=== PATIENT | male | born 1950 | race Caucasian/White ===

== ENCOUNTER 2016-12-02 16:24 | Inpatient (IN) | payer MEDICARE ==
[~2016-12-02] VITALS: Ht 182.9 cm; Wt 90.2 kg
[~2016-12-02 16:24] MED LIST: AMLODIPINE5 MG PO; ASA LO-DOSE81 MG OR; BENADRYL 50MG C50 MG PO; BENZTROPINE0.5 MG PO; CELEBREX100 M1 PO; CELEBREX200 MG PO; COGENTIN1 MG OR; DONEPEZIL5 MG PO; ENALAPRIL10 MG PO; ENALAPRIL20 MG PO; HALDOL1 MG PO; HALDOL5 MG PO; HALOPERIDOL5 MG PO; LORTAB 10-325 M1 TAB PO; MEDDOSEPAK PO; MIRACLEMM PO; NAPROSYN500 MG PO; PEPCID20 MG PO; PREDNISONE20 MG PO; PROAIR HFA IN; RISPERDAL2 MG PO; SYMBICORT1 AE1 IN; ULTRAM50 MG PO; XANAX0.25 MG PO
[2016-12-02 17:24] LABS: HEMATOCRIT 36.4 % (39.0-50.0); HEMOGLOBIN 12.8 g/dl (14.0-18.0); IMMATURE GRANULOCYTES 0.2 % (0.0-1.0); MEAN CELL VOLUME 80.2 fL CALC (80.0-100.0); MEAN CORPUSCULAR HGB 28.2 pG CALC (26.0-32.0); MEAN CORPUSCULAR HGB CONC 35.2 g/L CALC (32.0-36.0); NEUT# 5.66 thou/uL (1.82-7.42); RED BLOOD COUNT 4.54 mill/uL (4.70-6.10); RED CELL DISTRI WIDTH 12.9 % (11.5-15.5)
[2016-12-02 17:50] LABS: ALBUMIN 3.8 g/dL (3.2-5.0); ALKALINE PHOSPHATASE 59 u/l (38-126); ANION GAP 13 (6-22 (CALC)); BILIRUBIN, TOTAL 0.4 mg/dL (0.0-1.4); BUN 9 mg/dL (8-23); BUN/CREATININE RATIO 16 (12-20 (CALC)); CALCIUM 8.7 mg/dL (8.4-10.2); CARBON DIOXIDE 26 mmol/l (22-30); CHLORIDE 81 mmol/l (95-108); CREATININE 0.6 mg/dL (0.7-1.3); GFR > 60 ML/MIN (>=60 (CALC)); GFR FOR AFR.AMER. > 60 ML/MIN (>=60 (CALC)); GLUCOSE 112 mg/dL (82-115); MAGNESIUM 1.6 mg/dL (1.6-2.3); POTASSIUM 3.8 mmol/l (3.5-5.1); SGOT/AST 18 u/l (19-48); SGPT/ALT 31 u/l (11-66); TOTAL PROTEIN 7.4 g/dL (6.3-8.2)
[2016-12-02 17:52] LABS: SODIUM 116 mmol/l (137-146)
[2016-12-02 18:09] LABS: MYOGLOBIN 38 ng/mL (0 - 121)
[2016-12-02 20:38] VITALS: BP 151/72
[2016-12-02 23:30] VITALS: BP 104/65
[2016-12-03 04:15] VITALS: BP 128/77
[2016-12-03 05:33] LABS: URINE BILIRUBIN - DIPSTICK NEGATIVE (NEGATIVE); URINE BLOOD DIPSTICK NEGATIVE (NEGATIVE); URINE CLARITY SLIGHT CLOUDY; URINE COLOR YELLOW; URINE GLUCOSE - DIPSTICK 100 mg/dL (NEGATIVE); URINE KETONE NEGATIVE (NEGATIVE); URINE LEUK ESTERASE NEGATIVE (NEGATIVE); URINE NITRITE - DIPSTICK NEGATIVE (Negative); URINE PH 6.5 (4.5-8.0); URINE PROTEIN - DIPSTICK 100 mg/dL (NEG-TRACE); URINE SPECIFIC GRAVITY 1.015; URINE UROBILINOGEN - DIPSTICK 0.2 E.U./dL (0.2)
[2016-12-03 05:40] LABS: URINE AMORPH SEDIMENT MANY hpf (NONE-FER); URINE BACTERIA FEW hpf; URINE RBC 0-2 RBC/hpf (0-5); URINE SQUAMOUS EPITHELIAL CELL FEW EPI/hpf (0-FEW)
[2016-12-03 05:47] LABS: BUN 8 mg/dL (8-23); BUN/CREATININE RATIO 18 (12-20 (CALC)); CALCIUM 8.9 mg/dL (8.4-10.2); CARBON DIOXIDE 22 mmol/l (22-30); CHLORIDE 84 mmol/l (95-108); CREATININE 0.4 mg/dL (0.7-1.3); GFR > 60 ML/MIN (>=60 (CALC)); GFR FOR AFR.AMER. > 60 ML/MIN (>=60 (CALC)); GLUCOSE 149 mg/dL (82-115); MAGNESIUM 1.5 mg/dL (1.6-2.3)
[2016-12-03 05:49] LABS: ANION GAP 14 (6-22 (CALC))
[2016-12-03 05:53] LABS: SODIUM 116 mmol/l (137-146)
[2016-12-03 13:30] VITALS: BP 109/60
[2016-12-03 16:05] VITALS: BP 109/59
[2016-12-03 19:18] VITALS: BP 107/58
[2016-12-04 00:05] VITALS: BP 145/83
[2016-12-04 03:40] VITALS: BP 131/74
[2016-12-04 05:49] LABS: ANION GAP 12 (6-22 (CALC)); BUN 8 mg/dL (8-23); BUN/CREATININE RATIO 17 (12-20 (CALC)); CALCIUM 8.5 mg/dL (8.4-10.2); CARBON DIOXIDE 24 mmol/l (22-30); CHLORIDE 88 mmol/l (95-108); CREATININE 0.5 mg/dL (0.7-1.3); GFR > 60 ML/MIN (>=60 (CALC)); GFR FOR AFR.AMER. > 60 ML/MIN (>=60 (CALC)); GLUCOSE 133 mg/dL (82-115); MAGNESIUM 1.8 mg/dL (1.6-2.3); POTASSIUM 4.1 mmol/l (3.5-5.1); SODIUM 120 mmol/l (137-146)
[2016-12-04 08:10] VITALS: BP 140/85
[2016-12-04] MEDS ORDERED: PREDNISONE10 MG PO (10:15)
[2016-12-04] MEDS ORDERED: NICODERM C21 MG/242 TD (10:16)
[2016-12-04] MEDS ORDERED: ROBITUSSIN AC10 ML PO (10:17)
[2016-12-04 11:37] VITALS: BP 116/60
== END 2016-12-04 12:19 | disposition home or self-care (01) | DRG 189 ==
LOC: ENPENDDIS → ED 16:24 → ED-I 19:35 → ED 19:39 → MS2 19:40
PROVIDERS: Emergency Medicine; ADMIT Internal Medicine; ATTEND Internal Medicine
DX: J96.21 Acute and chronic respiratory failure with hypoxia (principal); F03.90 Unspecified dementia, unspecified severity, without behavioral disturbance, psychotic disturbance, mood disturbance, and anxiety; J44.0 Chronic obstructive pulmonary disease with (acute) lower respiratory infection; J44.1 Chronic obstructive pulmonary disease with (acute) exacerbation; E87.1 Hypo-osmolality and hyponatremia; J20.9 Acute bronchitis, unspecified; F17.210 Nicotine dependence, cigarettes, uncomplicated; F20.9 Schizophrenia, unspecified; I10 Essential (primary) hypertension; F45.8 Other somatoform disorders

== ENCOUNTER 2016-12-20 10:16 | Inpatient (IN) | payer MEDICARE ==
[2016-12-20] VITALS (7 sets, daily range): BP systolic 107–128; BP diastolic 61–78
[~2016-12-20] VITALS: Ht 182.9 cm; Wt 87.5 kg
[~2016-12-20 10:16] MED LIST changes: +NICODERM C21 MG/242 TD; +PREDNISONE10 MG PO; +ROBITUSSIN AC10 ML PO
--- NOTE | 2016-12-20 10:20 | NUR ---
PT ARRIVES VIA EMS TO ROOM 14. NO APPARENT DISTRESS NOTED. SPO2 96% ON ROOM AIR. PT RECEIVED 1 DUONEB AND 125 MG SOLUMEDROL IVP EN ROUTE TO ED.
--- NOTE | 2016-12-20 10:44 | NUR ---
PT NOW RECEIVES RESP TX, MOTHER NOW AT BEDSIDE.
[2016-12-20 10:45] LABS: HEMATOCRIT 31.8 % (39.0-50.0); HEMOGLOBIN 11.4 g/dl (14.0-18.0); IMMATURE GRANULOCYTES 0.3 % (0.0-1.0); MEAN CELL VOLUME 78.3 fL CALC (80.0-100.0); MEAN CORPUSCULAR HGB 28.1 pG CALC (26.0-32.0); MEAN CORPUSCULAR HGB CONC 35.8 g/L CALC (32.0-36.0); NEUT# 4.14 thou/uL (1.82-7.42); RED BLOOD COUNT 4.06 mill/uL (4.70-6.10); RED CELL DISTRI WIDTH 12.8 % (11.5-15.5)
[2016-12-20 11:10] LABS: ALBUMIN 3.6 g/dL (3.2-5.0); ALKALINE PHOSPHATASE 55 u/l (38-126); BILIRUBIN, TOTAL 0.6 mg/dL (0.0-1.4); BUN 7 mg/dL (8-23); BUN/CREATININE RATIO 12 (12-20 (CALC)); CALCIUM 8.4 mg/dL (8.4-10.2); CARBON DIOXIDE 22 mmol/l (22-30); CHLORIDE 80 mmol/l (95-108); CREATININE 0.6 mg/dL (0.7-1.3); GFR > 60 ML/MIN (>=60 (CALC)); GFR FOR AFR.AMER. > 60 ML/MIN (>=60 (CALC)); GLUCOSE 106 mg/dL (82-115); POTASSIUM 3.5 mmol/l (3.5-5.1); SGOT/AST 20 u/l (19-48); SGPT/ALT 28 u/l (11-66); TOTAL PROTEIN 6.9 g/dL (6.3-8.2)
[2016-12-20 11:17] LABS: ANION GAP 14 (6-22 (CALC))
[2016-12-20 11:18] LABS: MYOGLOBIN 30 ng/mL (0 - 121); SODIUM 112 mmol/l (137-146)
--- NOTE | 2016-12-20 11:45 | NUR ---
PT RESTING ON STRETCHER. DENIES COMPLAINTS. ADVISED OF WAIT TIME DUE TO BUSY ED. PT GIVEN WARM BLANKET FOR COMFORT. CALL LIGHT IN REACH.
--- NOTE | 2016-12-20 13:12 | NUR ---
PT AND MOTHER AWARE OF PENDING ADMISSION, TO ICU WHEN POSSIBLE.
[2016-12-20 14:26] LABS: POTASSIUM 3.4 mmol/l (3.5-5.1)
--- NOTE | 2016-12-20 14:45 | NUR ---
PT TAKEN TO ICU-1 AFTER REPORT PROVIDED TO KINGSLEY LUI.
--- NOTE | 2016-12-20 14:50 | NUR ---
PT ADMITTED TO ICU BED 1 VIA STRETCHER FROM ER. PT ALERT AND ORIENTED, STOOD OFF STRETCHER AND AMBULATED FEW STEPS TO BED WITH CANE AND MIN ASSIST, PT HAS SLIGHTLY UNSTEADY GAIT NOTED, PT INTO BED AND REPOSTIONED FOR COMFORT, PT ALERT AND ORIENTED, SOME TREMORS NOTED TO BILATERAL UE WITH PURPOSEFUL MOVEMENT AND AT REST, PT/FAMILY STATES THEY ARE NOT NEW, SKIN INTACT WIHT FEW SMALL SCATTERED ECCHYMOTIC AREAS NOTED TO BUE, EMS 20 G INTACT IN LEFT WRIST WITH GOOD ASPIRATE NOTED, ABD SOFT, BS ACTIVE, PT DENIES N/V, EDUCATED REGARDING FLUID RESTRICTION RELATED TO LOW SODIUM LEVEL, ADMISSION ASSESSMENT COMPLETED SEE INTERVENTIONS, TELE READING SR RATE 80-90'S,BP STABLE, AFEBRILE, SAFETY MEASURES INTRODUCED, CALL FIGUEROA WITHIN REACH, MOTHER AT BEDSIDE (SHE IS PRIMARY WAREHOUSE SHIFT SUPERVISOR) ENCOURGAED TO CALL FOR ANY NEEDED ASSISTANCE
--- NOTE | 2016-12-20 16:10 | NUR ---
PT RESTING IN BED, ASKING INTERMITTENLY FOR WATER OR "SOMEHTING TO DRINK" REINFORCED FLUID RESTIRCTION AND REASON FOR IT, PT VERBALIZES UNDERSTANDING, PT'S MOTHER ASKING ABOUT DIET AND WHEN HE WILL GET FOOD, EDUCATED REGARDING MEAL TIMES, NO CHANGE IN TELE NOTED, BP REMAINS STABLE, ALSO ASKING ABOUT MEIDCATIONS, EDUCATED REGARDING SCHEDULED MEDICATION TIMES, CALL FIGUEROA WITHIN REACH
--- NOTE | 2016-12-20 17:15 | NUR ---
3% SALINE STARTED ORDERED, PT AGAIN REMINDED OF FLUID RESTRICTION, VERBALIZES UNDERSTANDING BUT REQUIRES REINFORCEMENT RELATED TO FORGETFULNESS, MOM REMAINS AT BEDSIDE.
--- NOTE | 2016-12-20 18:30 | NUR ---
PT MOD ASSIST STOOD AT BEDSIDE TO USE URINAL, VOIDED 175ML CLEAR STEPHEN URINE, BACK TO BED AND REPOSITIONED FOR COMFORT.
--- NOTE | 2016-12-20 18:45 | NUR ---
RECEIVED REPORT FROM KINGSLEY SAL RN; FOUND PT ALERT AND ORIENTED X3, RESP ARE MILDLY LABORED, ON 3LPM VIA NC, DENIES PAIN AT THIS TIME, ASSITED WITH URINAL, PT UNABLE TO VOID AT THIS TIME, KEEP ASKING FOR WATER, PROVIDED A SIP TO MOISTEN MOUTH, LUNGS ARE CLEAR BILATERALLY, SR ON THE MONITOR, HR 86, PT IS AFEBRILE, RESP RATE IS 22 AT THIS TIME, BP 123/61, SPO2 96% VIA NC ON 3LPM, PT HAS 3% NS AT 50 ML/HR INFUSING TO EMS 20G LEFT WRIST, STRONG PEDAL PULSES, SKIN IS WARM AND DRY, EXPLAINED PLAN OF CARE AND MED SCHEDULE, PT APPEARS DISINTERESTED, WILL REINFORCE NEEDED. SAFETY PRECAUTIONS ARE IN PLACE, WILL CONTINUE TO MONITOR. CALL FIGUEROA IS AT REACH.
--- NOTE | 2016-12-20 18:50 | NUR ---
pt assisted with urinal usage, unable to urinate at this time.
[2016-12-20 19:55] LABS: BUN 9 mg/dL (8-23); BUN/CREATININE RATIO 16 (12-20 (CALC)); CALCIUM 8.9 mg/dL (8.4-10.2); CARBON DIOXIDE 19 mmol/l (22-30); CHLORIDE 80 mmol/l (95-108); CREATININE 0.5 mg/dL (0.7-1.3); GFR > 60 ML/MIN (>=60 (CALC)); GFR FOR AFR.AMER. > 60 ML/MIN (>=60 (CALC)); GLUCOSE 204 mg/dL (82-115); POTASSIUM 3.6 mmol/l (3.5-5.1)
[2016-12-20 19:56] LABS: ANION GAP 19 (6-22 (CALC)); SODIUM 114 mmol/l (137-146)
--- NOTE | 2016-12-20 20:00 | NUR ---
ATTEMPTED TO ASSIST PT TO STAND ON SIDE OF BED TO USE THE URINAL, TREMORS NOTED ON BILATERAL UPPER AND LOWER EXTREMETIES, VERY UNSTEADY GAIT NOTED, ASSISTED PT TO SIT DOWN ON SIDE OF BED, PT DID NOT VOIDED ANY URINE, KEEP ASKING FOR WATER, "STATES MY MOUTH IS DRY," EDUCATED PT ABOUT RATIONALE OF BEING ON FLUID RESTRICTION, PT IS DENIAL, PROVIDED A SIP OF WATER ONLY TO MOISTEN MOUTH, ASSISTED PT TO LIE BACK IN BED, TREMOLOUS, RESP ARE LABORED, ANXIOUS, INSTRUCTED ON BREATHING TECHNIQUES, PT DOES NOT FOLLOW COMMANDS, CALLED NICOLE CANCINO, FOR A BREATHING TX AT THIS TIME. WILL CONTINUE TO MONITOR.
--- NOTE | 2016-12-20 20:56 | NUR ---
MEDICATED PT WITH LORTAB FOR GENERALIZED ACHING PAIN, RATES IT AT 8/10, ASSISTED WITH URINAL, PT UNABLE TO HOLD URINAL BECAUSE OF TREMORS IN UPPER EXTREMITIES, VOIDED 50 ML OF CLEAR YELLOW URINE. WILL CONTINUE TO MONITOR
[2016-12-21] VITALS (10 sets, daily range): BP systolic 97–113; BP diastolic 53–69
--- NOTE | 2016-12-21 00:30 | NUR ---
JUVENILE CORRECTIONS OFFICER IN TO DRAW ELECTROLYTES.
--- NOTE | 2016-12-21 00:40 | NUR ---
PT RESTLESS, ANXIOUS, KEEPS REMOVING NC OF NOSE, RESP ARE UNLABORED, MEDICATED WITH ATIVAN IV PER DR. HARP WILL CONTINUE TO MONITOR.
[2016-12-21 00:52] LABS: URINE BILIRUBIN - DIPSTICK NEGATIVE (NEGATIVE); URINE BLOOD DIPSTICK NEGATIVE (NEGATIVE); URINE CLARITY CLEAR; URINE COLOR YELLOW; URINE GLUCOSE - DIPSTICK 100 mg/dL (NEGATIVE); URINE KETONE NEGATIVE (NEGATIVE); URINE LEUK ESTERASE NEGATIVE (NEGATIVE); URINE NITRITE - DIPSTICK NEGATIVE (Negative); URINE PROTEIN - DIPSTICK 30 mg/dL (NEG-TRACE); URINE UROBILINOGEN - DIPSTICK 0.2 E.U./dL (0.2)
[2016-12-21 01:05] LABS: URINE SQUAMOUS EPITHELIAL CELL RARE EPI/hpf (0-FEW); URINE WBC 0-2 WBC/hpf (0-5)
[2016-12-21 01:17] LABS: POTASSIUM 3.4 mmol/l (3.5-5.1)
--- NOTE | 2016-12-21 01:35 | NUR ---
RESTING IN BED CALM WITH EYES CLOSED; RESP ARE EVEN AND UNLABORED, MILD TREMORS NOTED ON BILATERAL UPPER EXT, SR ON MONITOR, HR 69, SPO2 98% AT THIS TIME.
--- NOTE | 2016-12-21 02:00 | NUR ---
GLYCERIN OPERATOR IN TO DRAW LABS.
[2016-12-21 02:22] LABS: POTASSIUM 3.4 mmol/l (3.5-5.1)
--- NOTE | 2016-12-21 04:01 | NUR ---
PT APPEARS TO BE SLEEPING WITH EYES CLOSED, RESP ARE UNLABORED, VSS, SPO2 93% ON 2L O2, 3% NS INFUSING PER PROTOCOL, IV SITE IS HEALTHY FREE OF EDEMA AND REDNESS, NO SIGNS OF EXTRAVASATION OR INFILTRATION, WILL CONTINUE TO MONITOR.
--- NOTE | 2016-12-21 04:10 | NUR ---
LAB TECHN DRAWING PT LABS.
[2016-12-21 04:35] LABS: POTASSIUM 3.4 mmol/l (3.5-5.1)
--- NOTE | 2016-12-21 04:47 | NUR ---
ASSISTED PT WITH URINAL USAGE, VOIDED 300 ML OF CLEAR YELLOW URINE, TREMULOUS, WITH MILD ANXIETY; 3% NS INFUSION COMPLETED AT 0430, 119 SODIUM LAB RESULTS.
--- NOTE | 2016-12-21 06:00 | NUR ---
VERTICAL LATHE OPERATOR DRAWING LABS.
[2016-12-21 06:14] LABS: HEMATOCRIT 33.9 % (39.0-50.0); IMMATURE GRANULOCYTES 0.5 % (0.0-1.0); MEAN CORPUSCULAR HGB 28.3 pG CALC (26.0-32.0); MEAN CORPUSCULAR HGB CONC 35.4 g/L CALC (32.0-36.0); NEUT# 16.31 thou/uL (1.82-7.42); RED BLOOD COUNT 4.24 mill/uL (4.70-6.10)
--- NOTE | 2016-12-21 06:17 | NUR ---
TOTAL OUPUT OF 500ML FOR LOAN SERVICING OFFICER, NOTIFIED DR OF LAST SODIUM RESULTS OF 119, WAITING FOR 0600 RESULTS.
[2016-12-21 06:31] LABS: ANION GAP 15 (6-22 (CALC)); BUN 6 mg/dL (8-23); BUN/CREATININE RATIO 13 (12-20 (CALC)); CARBON DIOXIDE 24 mmol/l (22-30); CHLORIDE 86 mmol/l (95-108); CREATININE 0.5 mg/dL (0.7-1.3); GFR > 60 ML/MIN (>=60 (CALC)); GFR FOR AFR.AMER. > 60 ML/MIN (>=60 (CALC)); GLUCOSE 124 mg/dL (82-115); POTASSIUM 3.9 mmol/l (3.5-5.1); SODIUM 121 mmol/l (137-146)
--- NOTE | 2016-12-21 07:25 | NUR ---
PT OOB TO BSC, AM ASSESSMENT COMPLETED, SEE INTERVENTIONS, SKIN WARM AND DRY ALERT AND ORIENTED WITH SOME TREMORS NOTED AND POOR BALANCE, CANE AT BEDSIDE, SKIN INTACT WIHT FEW SMALL SCATTERED ABRASIONS TO BUE, DRY AND SCABBED, PT IMPULSIVE WITH MOVEMENT AND ACTIVITY, REQUIRES FREQUENT SAFETY REMINDERS, EMS SITE INTACT SALINE LOCKED AT THIS TIME, NO EDEMA NOTED, TELE READING SR RATE IN THE 70-80'S BP STABLE, OFFERS NO COMPLAINTS, CALL FIGUEROA WITHIN REACH
--- NOTE | 2016-12-21 08:00 | NUR ---
PT ASSIST BATHED WHILE OOB, LINENS CHANGED ON BED, PT CONTIONENT OF MODERATE AMOUNT OF URINE AND LARGE FORMED BM, PT PROVIDED OWN ALEXIS CARE, MOD/MAX ASSIST TO CHAIR AT BEDSIDE FOR AM MEAL, SET UP ASSIST PROIVDED, CALL FIGUEROA WITHIN REACH
--- NOTE | 2016-12-21 08:11 | NUR ---
IN TO SEE PT, PLAN OF CARE DISCUSSED.
--- NOTE | 2016-12-21 09:04 | NUR ---
MOTHER AT BEDSIDE, PT REMAINS SITTING UP IN CHAIR, 3% SALINE INFUSING PER PROTOCOL
--- NOTE | 2016-12-21 09:32 | NUR ---
IN TO SEE PATIENT, PLAN OF CARE DISCUSSED INCLUDING PLANNED DISCHARGE THIS AFTERNOON. MOTHER REMAINS AT BEDSIDE AND IS ALSO AWARE OF PLAN, CALL FIGUEROA WITHIN REACH, WILL DRAW LAB WORK AT 1030 ORDERED
--- NOTE | 2016-12-21 11:03 | NUR ---
PT REMAINS SITTING UP IN CHAIR AT BEDSIDE, MOTHER REAMINS IN ROOM, LAB WORK DRAWN PER PROTOCOL, WITH HYPERTONIC SALINE CONTINUING PER ORDERS, CALL FIGUEROA WITHIN REACH, OFFERS NO NEW COMPLAINTS
[2016-12-21 11:17] LABS: ANION GAP 14 (6-22 (CALC)); BUN 7 mg/dL (8-23); BUN/CREATININE RATIO 14 (12-20 (CALC)); CALCIUM 9.2 mg/dL (8.4-10.2); CARBON DIOXIDE 24 mmol/l (22-30); CHLORIDE 87 mmol/l (95-108); CREATININE 0.5 mg/dL (0.7-1.3); GFR > 60 ML/MIN (>=60 (CALC)); GFR FOR AFR.AMER. > 60 ML/MIN (>=60 (CALC)); GLUCOSE 100 mg/dL (82-115); POTASSIUM 3.6 mmol/l (3.5-5.1); SODIUM 122 mmol/l (137-146)
--- NOTE | 2016-12-21 12:32 | NUR ---
REPEAT LAB WORK BACK, SODIUM LEVEL MINIMALLY IMPROVED, WILL REPEAT AGAINA T 1230PER PROTOCOL, TOLERATED LUNCH AND IVF ORDERED W/O INCINDENT.
--- NOTE | 2016-12-21 12:35 | NUR ---
PT ASSISTED BACK TO BED, OFFERS NO COMPLAINTS, TOLERATED LUNCH WELL WITH GOOD INTAKE, STRICT I&O'S OBSERVED, WITH FLUID RESTRICTION FOLLOWED, CALL FIGUEROA WITHIN REACH, MOTHER REMAINS AT BEDSIDE,
[2016-12-21] MEDS ORDERED: PREDNISONE10 MG PO (12:52)
[2016-12-21] MEDS ORDERED: DOXYCYCL HYC100 MG PO (12:52)
[2016-12-21] MEDS ORDERED: IPRATROPIU0.5 MG/3 M IN (12:52)
--- NOTE | 2016-12-21 13:17 | NUR ---
IN AGAIN, D/C ORDERS GIVEN, CASE MGMT AWARE OF NEED FOR HH AND HOME O2.
[2016-12-21 13:19] LABS: ANION GAP 14 (6-22 (CALC)); BUN 9 mg/dL (8-23); BUN/CREATININE RATIO 16 (12-20 (CALC)); CALCIUM 8.9 mg/dL (8.4-10.2); CARBON DIOXIDE 24 mmol/l (22-30); CHLORIDE 89 mmol/l (95-108); CREATININE 0.5 mg/dL (0.7-1.3); GFR > 60 ML/MIN (>=60 (CALC)); GFR FOR AFR.AMER. > 60 ML/MIN (>=60 (CALC)); GLUCOSE 127 mg/dL (82-115); POTASSIUM 3.7 mmol/l (3.5-5.1); SODIUM 124 mmol/l (137-146)
--- NOTE | 2016-12-21 13:47 | NUR ---
O2 SATURATION ON ROOM AIR AT REST 93%, WILL AMBULATE AND MONITOR
--- NOTE | 2016-12-21 14:10 | NUR ---
PT AMBULATED WTIH O2 SATS DROPPING TO 81-83%, AMBULATING WITH O2 SAST 84-86%, THEN UPON RESTING WITH O2 AT 2L WITHIN 60-80 SEC SATS IMPROVED TO 92-93%. AFTER 5 MIN OF REST SATS ON ROOM AIR 990-92%, PLANS FOR D/C TODAY WITH HOME O2 SET UP FOR PRN, AND HS,
--- NOTE | 2016-12-21 14:31 | NUR ---
MOTHER AND PATIENT EDUCATED REGARDING D/C HOME, INCLUDING HH, SELECTION FOLLOW UP WITH HH, FOLLOW UP WITH MD'S, HOME O2 USE PRN , NEB TREATMENTS AND LAB WORK, BOTH VERBALIZE UNDERSTANDING. AWAITING CLEARANCE FROM CASE MGMT, TO D/C.
--- NOTE | 2016-12-21 15:43 | NUR ---
[place] O2 DELIVERED TO BEDSIDE WITH FOLLOW UP SCHEDULED FOR HOME WELL.
--- NOTE | 2016-12-21 15:43 | NUR ---
Discharge instructions given. Patient verbalizes understanding of same. Discharged in stable condition via Wheelchair to Home with family. All belongings sent with pt.HOME PORTABLE O2 TANK AND SCRIPTS SENT WITH PATIENT WELL.
== END 2016-12-21 15:45 | DRG 641 ==
LOC: ENPENDDIS → ED 10:16 → ED-I 12:42 → ED 13:04 → ICU 13:05
PROVIDERS: Emergency Medicine; Internal Medicine; ADMIT Internal Medicine; ATTEND Internal Medicine
DX: E87.1 Hypo-osmolality and hyponatremia (principal); J44.1 Chronic obstructive pulmonary disease with (acute) exacerbation; I10 Essential (primary) hypertension; F20.9 Schizophrenia, unspecified; F50.89 Other specified eating disorder; D63.8 Anemia in other chronic diseases classified elsewhere; Z86.73 Personal history of transient ischemic attack (TIA), and cerebral infarction without residual deficits; Z87.891 Personal history of nicotine dependence
CPT/HCPCS: J2060

== ENCOUNTER 2017-03-03 11:36 | Inpatient (IN) | payer MEDICARE ==
[~2017-03-03] VITALS: Ht 182.9 cm; Wt 87.1 kg
[2017-03-03] VITALS (12 sets, daily range): BP systolic 129–157; BP diastolic 77–103
[~2017-03-03 11:36] MED LIST changes: +BEVESPI AEROSPH1 AER IN; +DOXYCYCL HYC100 MG PO; +IPRATROPIU0.5 MG/3 M IN
--- NOTE | 2017-03-03 11:45 | NUR ---
PATIENT FELL PRIOR TO ARRIVAL AND BECAME CONFUSED AND COMBATIVE. MOTHER GAVE 5MG OF VALIUM AND EMS GAVE AN ADDITIONAL 5MG OF VALIUM. PATIENT NOT ORIENTED TO PLACE OR TIME. PATIENT APPEARS ANXIOPUS AND COMBATIVE. RESTRAINTS APPLIED AND PHYSICIAN AT BEDSIDE FOR EVALUATION
[2017-03-03] MEDS ORDERED: BENZTROPINE0.5 MG PO (12:22)
[2017-03-03 12:24] LABS: URINE BILIRUBIN - DIPSTICK NEGATIVE (NEGATIVE); URINE BLOOD DIPSTICK NEGATIVE (NEGATIVE); URINE CLARITY CLEAR; URINE COLOR YELLOW; URINE GLUCOSE - DIPSTICK NEGATIVE (NEGATIVE); URINE KETONE NEGATIVE (NEGATIVE); URINE LEUK ESTERASE NEGATIVE (NEGATIVE); URINE NITRITE - DIPSTICK NEGATIVE (Negative); URINE PROTEIN - DIPSTICK NEGATIVE (NEG-TRACE); URINE UROBILINOGEN - DIPSTICK 0.2 E.U./dL (0.2)
[2017-03-03] MEDS ORDERED: TEMAZEPAM15 MG PO (12:25)
[2017-03-03] MEDS ORDERED: ALBUTEROL SUL0.083 % IN (12:26)
[2017-03-03] MEDS ORDERED: VALIUM5 MG PO (12:26)
--- NOTE | 2017-03-03 12:28 | NUR ---
PT LESS COMBATIVE AFTER IV MED GIVEN. MOM @ BEDSIDE. RESTRAINTS ON BOTH WRISTS. PT ABLE TO MOVE FREELY. CATH MILLER IN PLACE. PT STATES HES HUNGRY. BLOOD & URINE SENT TO LAB. PT REPEATEDLY KICKING OFF HIS BLANKETS. MOM STATES MENTATION IS DIFFERENT THAN NORMAL.
[2017-03-03 12:33] LABS: COCAINE NEGATIVE (NEGATIVE); METHADONE NEGATIVE (NEGATIVE); TETRAHYDROCANNABIONOL NEGATIVE (NEGATIVE)
[2017-03-03 12:34] LABS: BARBITURATES NEGATIVE (NEGATIVE); OXCYCODONE NEGATIVE (NEGATIVE); TRICYLIC ANTIDEPRESSANTS NEGATIVE (NEGATIVE)
[2017-03-03 12:36] LABS: ALKALINE PHOSPHATASE 49 u/l (38-126); ANION GAP 12 (6-22 (CALC)); BILIRUBIN, TOTAL 0.8 mg/dL (0.0-1.4); BUN 13 mg/dL (8-23); BUN/CREATININE RATIO 24 (12-20 (CALC)); CARBON DIOXIDE 23 mmol/l (22-30); CHLORIDE 83 mmol/l (95-108); CREATININE 0.5 mg/dL (0.7-1.3); GFR > 60 ML/MIN (>=60 (CALC)); GFR FOR AFR.AMER. > 60 ML/MIN (>=60 (CALC)); GLUCOSE 87 mg/dL (82-115); POTASSIUM 3.8 mmol/l (3.5-5.1); SGOT/AST 20 u/l (19-48); SGPT/ALT 28 u/l (11-66); TOTAL PROTEIN 6.5 g/dL (6.3-8.2)
[2017-03-03 12:39] LABS: HEMATOCRIT 23.1 % (39.0-50.0); HEMOGLOBIN 7.9 g/dl (14.0-18.0); MEAN CELL VOLUME 80.5 fL CALC (80.0-100.0); MEAN CORPUSCULAR HGB 27.5 pG CALC (26.0-32.0); MEAN CORPUSCULAR HGB CONC 34.2 g/L CALC (32.0-36.0); NEUT# 0.58 thou/uL (1.82-7.42); RED BLOOD COUNT 2.87 mill/uL (4.70-6.10); RED CELL DISTRI WIDTH 17.4 % (11.5-15.5)
[2017-03-03 12:41] LABS: SODIUM 114 mmol/l (137-146)
--- NOTE | 2017-03-03 12:41 | NUR ---
PT THRASHING AROUND ON THE BED. PT KICKING LEGS & TRYING TO CLIMB OVER BED RAILING. IV TUBING & CATH MILLER SECURED WITH COBAN. PT TRYING TO PULL OFF EKG LEADS. PT YELLING FOR HIS MOTHER. (MOM STEPPED OUT OF ROOM BC SHE STATES SHE CANT SEE HIM LIKE THIS)
[2017-03-03 12:48] LABS: MYOGLOBIN 110 ng/mL (0 - 121)
--- NOTE | 2017-03-03 12:54 | NUR ---
ANKLE RESTRAINTS ADDED DUE TO PT TRYING TO SWING HIS LEGS OVER AND CLIMB OUT OF BED. PT REPEATEDLY TRYING TO GET UP AND SCREAMING FOR HIS MOM. PT KICKING OFF BLANKETS. AWARE.
--- NOTE | 2017-03-03 13:02 | NUR ---
IV MEDS GIVEN. HOUSE REGISTRY RN & MOTHER AWARE OF RESTRAINTS BEING USED @ BOTH WRISTS & BOTH ANKLES TO HELP CONFUSED PT.
--- NOTE | 2017-03-03 13:50 | NUR ---
RETURNED FROM [facility]. PT STILL VERY AGITATED, TRYING TO SIT UP, TRYING TO CLIMB OVER RAILINGS, PULLING OFF MONITOR EQUIPMENT. PT STILL CONFUSED, CALLING ME MOM.
--- NOTE | 2017-03-03 14:29 | NUR ---
PT GIVEN A SANDWICH & WATER. PORT ACCESSED. WAITING ON MEDS FROM PHARMACY. PT IS STILL AGITATED AND CONTINUES TO WANT TO CLIMB OUT OF BED AND PULL ON MONITORING EQUIPMENT. PT HAS GOOD CAPIALLARY REFILL TO ALL EXTREMETIES. 700CC OF URINE REMOVED FROM CATH MILLER.
--- NOTE | 2017-03-03 14:42 | NUR ---
Admission Note Report Given to: KINGSLEY Transported by: Wheelchair X Stretcher Transported with: X Nurse Transporter X Patent IV X O2 X Community Service Representative
--- NOTE | 2017-03-03 15:31 | NUR ---
PT EXTREMELY RESTLESS AND FIDGETY RESTRAINTS IN PLACE RELATED TO PT CONFUSION AND NOT FOLLOWING SAFETY INSTRUCTIONS, PULLING AT MEDICAL EQUIPMENT NON STOP AND STATING I ANGELA ALMANZA MA HELP ME UP, I'M HUNGRY, AND CONSTANTLY REPEATING THESE PHRASES, PT ORIENTED TO NAME, ANSWERS MOST QUESTIONS APPROPRIATELY, BUT IS CONFUSED, NEURO STATUS INTACT PUPILS REACTIVE, AND MOVES ALL EXTREMETIES, PT HAS FINE TREMORS NOTED TO EXTREMETIES BUT NOT NEW PER MOTHER, PT BROUGHT TO ER VIA EMS FOR FALL X 2 AT HOME WITH CONTUSION TO R FOREHEAD AND QUESTIONABLE ALTERED MENTAL STATUS, MOTHER IS PRIMARY FIELD COIL WINDER, ADMISSION ASSESSMENT COMPLETED SEE INTERVENTIONS, PT RECENTLY DIAGNOSED WITH LUNG CA AND IS CURRENTLY UNDERGOING TREATMENT IN [facility] (WHERE HIS MOTHER MOVED THEM WITH HER YOUNGER SON PT'S YOUNGER BROTHER) THEY CAME BACK TO [place] FOR A FEW DAYS TO PACK UP SOME MORE OF THEIR BELINGINGS WHEN THIS OCCURED, PT HAS IMPLANTED PORT IN LEFT CHEST WALL ACCESSED BY ER STAFF W/O INCIDENT, GOOD ASPIRATE NOTED, AND IVF INFUSING ORDERED 3% SALINE ORDERED, 18G IV SITE IN LW, MILLER CATHTER INTACT WITH CATH STRAP IN PLACE, PT HAS 02 ON AT 2L VIA NC WITH NO SHORTNESS OF BREATH OR DISTRESS NOTED, ABD SOFT AND BS ACTIVE, SKIN INTACT WITH NO BREAKDNOW NOTED, FEW SMALL SCATTERED ABRASIONS NOTED TO EXTREMETIES MOM STATES ARE FROM FALLS AND HIS POOR BALANCE "HE'S ALWAYS RUNNING INTO THINGS AT HOME", NO EDEMA NOTED PPPB, TELE READING SR RATE IN THE 80'S BP STABLE, SAFETY MEASURES INTRODUCED, CALL FIGUEROA WITHIN REACH WILL MONITOR CLOSELY
--- NOTE | 2017-03-03 16:10 | NUR ---
PT REMAINS RESTLESS AND AGITATED, DOES NOT FOLLOW SAFETY INSTRUCTIONS, CONTINUES TO PULL AT MEDICAL EQUIPMENT. IVF CONTINUE ORDERED, VS STABLE AND PT REMAINS AFEBRILE, WILL CONTINUE TO MONITOR.
--- NOTE | 2017-03-03 16:52 | NUR ---
PT REMAINS AGITATED AND RESTLESS, MEDICATED FOR COMPLAINTS OF "EVERYTHING ACHING" TAKES PO MEDICATIONS W/O INCIDENT, RESTRAINTS REMAIN IN PLACE WITH ADEQUATE CIRCULTAION NOTED, MILLER DRAINING CLEAR YELLOW URINE AND CATH STRAP SECURE, REMAIN UNCOOPERATVEI WITH MEDICAL EQUIPMENT, AND ATTEMPTS TO REMOVE, WILL CONTINUE TO MONITOR.
--- NOTE | 2017-03-03 17:22 | NUR ---
PT RESTING INTERMITTENTLY DOZING AND RESTLESS, CALL FIGUEROA WITHIN REACH, WILL CONTINUE TO MONITOR
--- NOTE | 2017-03-03 18:04 | NUR ---
LAB WORK DRAWN ORDERED FROM PORT PT TOLERATED WELL. FLUSHED PER PROTOCOL AND IVF CONTINUE.
--- NOTE | 2017-03-03 18:19 | NUR ---
CONSULTED, HE IS ALREADY AWARE OF THIS PER
[2017-03-03 18:37] LABS: POTASSIUM 3.3 mmol/l (3.5-5.1)
--- NOTE | 2017-03-03 18:55 | NUR ---
report rec'd from thony. transferred per stretcher to icu1. transferred to bed x2 assists. drowsy but awakens when touched & begins yelling out "i got to pee." instructed pt he has cath in place. bed weight obtained. o2 cont per nc. finish cleaner shows sinus rhythm. #18 ems saline lock lt wrist. 3% ns infusing @ 58cchr per lt chest port. son cath in place. urine clear yellow. 4 point restraints continue. fall & reverse isolation initiated. pts mother retrieved from waiting room. updated on pts condition.
--- NOTE | 2017-03-03 22:00 | NUR ---
eyes closed. yells out if aroused. radiation monitor shows sinus rhythm.
[2017-03-04] VITALS (9 sets, daily range): BP systolic 102–153; BP diastolic 57–84
--- NOTE | 2017-03-04 00:01 | NUR ---
awake. naps frequently. remains confused. pulls @ o2, quality assurance monitor, bp cuff & son cath. no acute distress.
--- NOTE | 2017-03-04 01:20 | NUR ---
lab here. blood drawn.
[2017-03-04 01:55] LABS: POTASSIUM 3.6 mmol/l (3.5-5.1)
--- NOTE | 2017-03-04 04:00 | NUR ---
eyes closed. no distress. concrete analyst shows sinus rhythm.
--- NOTE | 2017-03-04 04:45 | NUR ---
lab here. blood drawn.
[2017-03-04 05:39] LABS: ANION GAP 11 (6-22 (CALC)); BUN 9 mg/dL (8-23); BUN/CREATININE RATIO 21 (12-20 (CALC)); CALCIUM 7.7 mg/dL (8.4-10.2); CARBON DIOXIDE 23 mmol/l (22-30); CHLORIDE 93 mmol/l (95-108); CREATININE 0.4 mg/dL (0.7-1.3); GFR > 60 ML/MIN (>=60 (CALC)); GFR FOR AFR.AMER. > 60 ML/MIN (>=60 (CALC)); GLUCOSE 75 mg/dL (82-115); SODIUM 123 mmol/l (137-146)
--- NOTE | 2017-03-04 06:00 | NUR ---
no acute change in condition. no distress.
[2017-03-04 06:03] LABS: HEMOGLOBIN 8.1 g/dl (14.0-18.0); IMMATURE GRANULOCYTES 1.6 % (0.0-1.0); MEAN CELL VOLUME 82.5 fL CALC (80.0-100.0); MEAN CORPUSCULAR HGB 27.8 pG CALC (26.0-32.0); MEAN CORPUSCULAR HGB CONC 33.8 g/L CALC (32.0-36.0); NEUT# 0.24 thou/uL (1.82-7.42); RED BLOOD COUNT 2.91 mill/uL (4.70-6.10); RED CELL DISTRI WIDTH 17.8 % (11.5-15.5)
--- NOTE | 2017-03-04 07:40 | NUR ---
PT RESTING IN BED, ALERT AND ORIENTED, PT CALM AND COOPERATIVE AT THIS TIME, COMPLIANT WIHT CARE, DOES NOT REMEMBER COMING TO HOSPITAL, RESTRAINTS REMOVED AT THIS TIME, SAFETY MEASURES REINFORCED, AM ASSESSMENT COMPLETED SEE INTERVENTIONS, VS STABLE, SKIN INTACT, FEW SMALL SCATTERED ABRASIONS TO EXTREMETIES, DENIES PAIN, HEMATOMA NOTED TO R FOREHEAD, PT DENIES HEADACHE, OR CHANGED VISION, MILLER CATHETER REMAINS INTACT WITH CLEAR YELLOW URINE OUT, CATH STRAP SECURE, CALL FIGUEROA WITHIN REACH, PT EASILY VISIBLE FROM NURSES STATION FOR SAFETY, WILL CONTINUE TO MONITOR
--- NOTE | 2017-03-04 08:30 | NUR ---
SET UP ASSIST PROVIDED FOR AM MEAL, WATER PROVIDED WITH STRICT MONITORING IF INTAKE, PT REMINDED WHY, VERBALIZES UNDERSTANDING, CALL FIGUEROA WITHIN REACH
--- NOTE | 2017-03-04 09:30 | NUR ---
pt resting in bed, no s/s of distress noted, mother at bedside
--- NOTE | 2017-03-04 10:34 | NUR ---
pt resting, dozes intermittenly, call carver within reach. frequently requests water, reminded repeatedly about monitoring and limiting intake, verbalizes understanding,
--- NOTE | 2017-03-04 11:34 | NUR ---
at bedside talking about plan of care with family.
--- NOTE | 2017-03-04 13:00 | NUR ---
PT RESTING, TOLERATED AFTERNOON MEAL WELL, CALL FIGUEROA WITHIN REACH, MOTHER REMAINS AT BEDSIDE, CALL FIGUEROA WITHIN REACH
--- NOTE | 2017-03-04 14:23 | NUR ---
PT RESTING CALLS OCCASIONALLY COMPLAING OF NEED TO VOID, RE-EDUCATED REGRADING MILLER CATHTER PRN, GOOD URINE OUTPUT NOTED, WILL CONTINUE TO MONITOR. MOTHER REMAINS AT BEDSIDE
--- NOTE | 2017-03-04 15:35 | NUR ---
PT RESTING DOZES INTERMITTENLY, MOM GONE AT THIS TIME, SHE VERBALIZED PLANS TO NOT RETURN TO AM, WILL CONTINUE TO MONITOR
--- NOTE | 2017-03-04 16:57 | NUR ---
PT REQUESTED LIGHTS OFF, REPOSITIONED SELF FOR "NAP", CALL FIGUEROA WITHIN REACH
--- NOTE | 2017-03-04 17:54 | NUR ---
SET UP ASSIST PROVIDED EARLIER FOR PM MEAL
--- NOTE | 2017-03-04 18:50 | NUR ---
REPORT RECEIVED FROM KINGSLEY SAL RN. INTRODUCED SELF TO PT. PT IS ALERT AND ORIENTED X3, DENIES PAIN, NO S/S OF DISTRESS NOTED, MONITOR SHOWS STABLE VITAL SIGNS, SR WITH HR 90-99 AT THIS TIME, WILL FOLLOW UP WITH ASSESSMENT AND MED SCHEDULE. CALL FIGUEROA AT [facility].
--- NOTE | 2017-03-04 19:46 | NUR ---
PT RESTING IN BED, WATCHING TV, ATTEMPTED TO GET OUT OF BED TO VOID, REMINDED OF MILLER CATH IN PLACE, VOICES UNDERSTANDING, EMPTIED 350CC AT THIS TIME, CLEAR PALE YELLOW URINE, LEG STRAP IS IN PLACE, PROVIDED FRESH ICE WATER, EDUCATED ABOUT RESTRICTION OF WATER INTAKE TO PREVENT HYPONATREMIA, PT VOICES UNDERSTANDING, HAS A LEFT IMPLANTED CHEST PORT, FLUSHES WELL WITH BLOOD ASPIRATE, DRESSING IS INTACT, CURRENTLY 2LPM OF O2 VIA NC, DENIES SOB OR PAIN AT THIS TIME, RESP ARE EVEN AND UNLABORED, VSS, SR ON MONITOR, ENCOURAGED TO CALL IF NEEDED, REVERSE ISOLATION IN PLACE, REINFORCED SAFETY MEASURES, CALL FIGUEROA AT REACH.
--- NOTE | 2017-03-04 21:45 | NUR ---
PT APPEARS TO BE SLEEPING WITH EYES CLOSED, EASILY AROUSES TO VERBAL STIMULI, VOICES NO COMPLAINTS, VSS, NO DISTRESS NOTED, WILL CONTINUE TO MONITOR.
--- NOTE | 2017-03-04 23:59 | NUR ---
PT AWAKE, REQUESTING SOME ICE WATER, PROVIDED A SMALL CUP, EDUCATED ABOUT FLUID RESTRICTION, VOICES UNDERSTANDING, DENIES PAIN OR SOB, RESP ARE EVEN AND UNLABORED, NO DISTRESS NOTED, VSS, AFEBRILE, MILLER DRAINING BY GRAVITY, PALE YELLOW URINE, NO NEURO DEFICITS NOTED AT THIS TIME, CALL FIGUEROA AT REACH.
[2017-03-05] VITALS (10 sets, daily range): BP systolic 90–151; BP diastolic 50–96
[2017-03-05 04:33] LABS: HEMATOCRIT 25.1 % (39.0-50.0); HEMOGLOBIN 8.4 g/dl (14.0-18.0); IMMATURE GRANULOCYTES 4.8 % (0.0-1.0); MEAN CELL VOLUME 82.8 fL CALC (80.0-100.0); MEAN CORPUSCULAR HGB 27.7 pG CALC (26.0-32.0); MEAN CORPUSCULAR HGB CONC 33.5 g/L CALC (32.0-36.0); NEUT# 0.08 thou/uL (1.82-7.42); RED BLOOD COUNT 3.03 mill/uL (4.70-6.10); RED CELL DISTRI WIDTH 18.3 % (11.5-15.5)
--- NOTE | 2017-03-05 04:41 | NUR ---
PT DOZES INTERMITTENTLY, REPEATEDLY ASKING FOR ICE WATER, EDUCATED ABOUT LIMITING WATER INTAKE, VOICES UNDERSTANDING, NO S/S OF DISTRESS NOTED, VSS, SR ON MONITOR, HR 82, RESP ARE EVEN AND UNLABORED, CALL FIGUEROA AT REACH.
[2017-03-05 04:51] LABS: ANION GAP 11 (6-22 (CALC)); BUN 7 mg/dL (8-23); BUN/CREATININE RATIO 15 (12-20 (CALC)); CARBON DIOXIDE 24 mmol/l (22-30); CHLORIDE 92 mmol/l (95-108); CREATININE 0.5 mg/dL (0.7-1.3); GFR > 60 ML/MIN (>=60 (CALC)); GFR FOR AFR.AMER. > 60 ML/MIN (>=60 (CALC)); GLUCOSE 87 mg/dL (82-115); MAGNESIUM 1.4 mg/dL (1.6-2.3); POTASSIUM 3.4 mmol/l (3.5-5.1); SODIUM 123 mmol/l (137-146)
--- NOTE | 2017-03-05 05:44 | NUR ---
PT APPEARS TO BE SLEEPING WITH EYES CLOSED, VOICES NO COMPLAINTS, RESP ARE EVEN AND UNLABORED, NO SIGNS OF DISTRESS NOTED, CALL FIGUEROA AT REACH.
--- NOTE | 2017-03-05 07:20 | NUR ---
PT RESTING IN BED, ALERT AND ORIENTED, PT CALM AND COOPERATIVE AT THIS TIME, COMPLIANT WIHT CARE, SAFETY MEASURES REINFORCED, AM ASSESSMENT COMPLETED SEE INTERVENTIONS, VS STABLE, SKIN INTACT, FEW SMALL SCATTERED ABRASIONS TO EXTREMETIES, DENIES PAIN, HEALING HEMATOMA NOTED TO R FOREHEAD, PT DENIES HEADACHE, OR CHANGED VISION, MILLER CATHETER REMAINS INTACT WITH CLEAR YELLOW URINE OUT, CATH STRAP SECURE, CALL FIGUEROA WITHIN REACH, PT EASILY VISIBLE FROM NURSES STATION FOR SAFETY, WILL CONTINUE TO MONITOR
--- NOTE | 2017-03-05 08:21 | NUR ---
SET UP ASSIST PROVIDED EARLIER FOR AM MEAL WITH GOOD INTAKE, CONTINUE TO MONITOR INTAKLE CLOSELY RELATED TO PT HISTORY OF POLYDIPSIA. CALL FIGUEROA WITHIN REACH.
--- NOTE | 2017-03-05 08:22 | NUR ---
MAGNESIUM INFUSING ORDERED, THRU IMPLANTED PORT, CALL FIGUEROA WITHIN REACH
--- NOTE | 2017-03-05 09:38 | NUR ---
MOTHER AT BEDSIDE
--- NOTE | 2017-03-05 10:15 | NUR ---
REPORT CALLED TO IAN HASSAN ON MED SURG
--- NOTE | 2017-03-05 10:45 | NUR ---
PT RESTING IN BED, MOTHER REMAINS AT BEDSIDE, EDUCATED MOTHER REGARDING WEAKNESS AND WBC WITH REGARDS TO SIDE EFFECTS OF CHEMO, AND TREATMENTS FOR CANCER, ETC...PT VERBALIZES UNDERSTANDING BUT MAY REQUIRE REINFORCEMENT, CALL FIGUEROA WITHIN REACH
--- NOTE | 2017-03-05 11:30 | NUR ---
PT BATHED WITH CISO ASSIST, THEN ALL BELONGINGS AND PT TRANSFERRED TO MED SURG, MOTHER AT PT SIDE.
--- NOTE | 2017-03-05 11:30 | NUR ---
PT ARRIVED FROM ICU VIA WC ACCOMPANIED BY STAFF. IV SITE IS FREE FROM REDNESS OR EDEMA. FAMILY ACCOMPANIED PT AND STAFF. CONTINUE TO OBSERVE AND MONITOR.,
--- NOTE | 2017-03-05 16:00 | NUR ---
PT IS RESTING IN BED WITH NO DISTRESS NOTED. IV SITE IS FREE FROM REDNESS OR EDEMA. CONTINUE TO OBSERVE AND MONITOR.
--- NOTE | 2017-03-05 19:45 | NUR ---
PT LAYING ON RIGHT SIDE WITH EYES CLOSED, RESPONDS EASILY TO VERBAL COMMAND, ALERT TO SELF, PLACE AND . DENIES PAIN, O2 @2L VIA NC IN PLACE, TELE IN PLACE. MILLER DRAINING CLEAR YELLOW URINE. BED ALARM IN PLACE TO PREVENT FALL. REVERSE ISOLATIONS DUE TO WBC 0.6, PT AWARE. WILL CONTINUE TO MONITOR.
--- NOTE | 2017-03-05 22:00 | NUR ---
PT ABLE TO REPOSITION SELF IN BED FROM SIDE TO SIDE, RESPIRATIONS EVEN AND UNLABORED. CALL LIGHT IN REACH. BED ALARM IN PLACE.
[2017-03-06 00:20] VITALS: BP 123/80
--- NOTE | 2017-03-06 01:05 | NUR ---
MEDICATED WITH LORTAB FOR C/O GENERALIZED PAIN 11/05.
[2017-03-06 03:25] VITALS: BP 120/81
--- NOTE | 2017-03-06 05:25 | NUR ---
MORNING BLOOD WORK DRAWN FROM PORT TO LEFT SIDE OF CHEST, TOLERATED WELL, GREAT BLOOD RETURN.
[2017-03-06 06:13] LABS: ANION GAP 9 (6-22 (CALC)); BUN 7 mg/dL (8-23); BUN/CREATININE RATIO 16 (12-20 (CALC)); CALCIUM 7.6 mg/dL (8.4-10.2); CARBON DIOXIDE 27 mmol/l (22-30); CHLORIDE 90 mmol/l (95-108); CREATININE 0.4 mg/dL (0.7-1.3); GFR > 60 ML/MIN (>=60 (CALC)); GFR FOR AFR.AMER. > 60 ML/MIN (>=60 (CALC)); GLUCOSE 81 mg/dL (82-115); MAGNESIUM 1.4 mg/dL (1.6-2.3); POTASSIUM 3.4 mmol/l (3.5-5.1); SODIUM 121 mmol/l (137-146)
[2017-03-06 06:37] LABS: HEMATOCRIT 23.6 % (39.0-50.0); IMMATURE GRANULOCYTES 1.3 % (0.0-1.0); MEAN CELL VOLUME 83.1 fL CALC (80.0-100.0); MEAN CORPUSCULAR HGB 28.2 pG CALC (26.0-32.0); MEAN CORPUSCULAR HGB CONC 33.9 g/L CALC (32.0-36.0); NEUT# 0.05 thou/uL (1.82-7.42); RED BLOOD COUNT 2.84 mill/uL (4.70-6.10); RED CELL DISTRI WIDTH 18.2 % (11.5-15.5)
--- NOTE | 2017-03-06 07:15 | NUR ---
PT LAYING IN BED WATCHING TV, NO S/S OF DISTRESS, PT A & O X3, PERRL, RESP. EVEN & UNLABORED, LUNG SOUNDS CLEAR, O2 @ 2L VIA NC, TELE MONITOR IN PLACE, MILLER CATH IN PLACE & DRAINING CLEAR YELLOW URINE, SECURED WITH CATH STRAP, BED ALARM REMAINS ON FOR PT'S SAFETY, REVERSE ISOLATION DUE TO WBC, AM ASSESSMENT COMPLETE, SEE INTERVENTIONS, SAFETY MEASURES REINFORCED, CALL FIGUEROA WITHIN REACH
--- NOTE | 2017-03-06 07:35 | NUR ---
SETUP ASSISTANCE PROVIDED WITH GISELLE JO
--- NOTE | 2017-03-06 09:00 | NUR ---
VISITOR AT BEDSIDE
--- NOTE | 2017-03-06 09:25 | NUR ---
S: MADISYN LUNDBERG is a 66 M who presents with altered mental status and a non-sycopal fall. He has a history of schizophrenia, neck pain, back pain, CVA, COPD, HTN, polydipsia, and hyponatremia. All medications in patient's chart were reviewed. O: VS: BP 120/81, P 84, RR 20, T 98.2 W 87 kg, HT 72 in, Scr 1 A: Blood culture is pending but preliminary results show gram positive cocci. P: Vancomycin ordered for pharmacy to dose. Start Vancomycin 1250 mg IV Q12H. Vancomycin trough is to be drawn before the 4th dose on 03/07/17 @ 1900. Vancomycin goal trough is between 15-20 mcg/ml. Pharmacy will follow and or advise on antibiotics use as needed.
--- NOTE | 2017-03-06 09:25 | NUR ---
DR CHING AT BEDSIDE DISCUSSING PLAN OF CARE
--- NOTE | 2017-03-06 09:38 | NUR ---
DR REMY AT BEDSIDE DISCUSSING PLAN OF CARE WITH PT AT PT'S MOTHER
--- NOTE | 2017-03-06 11:50 | NUR ---
SETUP ASSISTANCE PROVIDED WITH LUNCH TRAY
[2017-03-06 12:00] VITALS: BP 130/74
--- NOTE | 2017-03-06 13:20 | NUR ---
PT LAYING IN BED RESTING WITH EYES CLOSED, AROUSES EASILY TO VERBAL STIMULI, PT VERBALIZES NO COMPLAINTS, PT REMINDED TO CALL FOR ASSISTANCE, CALL [facility] WITHIN REACH
[2017-03-06 16:00] VITALS: BP 132/78
--- NOTE | 2017-03-06 16:47 | NUR ---
PT LAYING IN BED RESTING WITH EYES CLOSED, AROUSES EASILY TO VERBAL STIMULI, VERBALIZES NO COMPLAINTS, PT'S MOTHER REMAINS AT BEDSIDE, CALL [facility] WITHIN REACH
[2017-03-06 19:30] VITALS: BP 111/74
--- NOTE | 2017-03-06 20:20 | NUR ---
PT IN BED ON RIGHT SIDE WITH EYES CLOSED, RESPIRATIONS EVEN AND UNLABORED, RESPONDS EASILY TO VERBAL COMMAND, COGNITIVE LIMITATIONS NOTED. ALERT TO SELF AND PLACE. DENIES PAIN AT THIS TIME. ONE CUP OF WATER PROVIDED AT THIS TIME, IS ON FLUID RESTRICTIONS. BED ALARM IN PLACE. CALL LIGHT IN REACH.
[2017-03-07] VITALS (14 sets, daily range): BP systolic 100–138; BP diastolic 69–88
--- NOTE | 2017-03-07 00:25 | NUR ---
COMPLETE BED BATH AND LINEN CHANGE PROVIDED BY [facility]. BED ALARM IN PLACE. CALL LIGHT IN REACH.
[2017-03-07 06:37] LABS: ALBUMIN 2.7 g/dL (3.2-5.0); BUN 8 mg/dL (8-23); CALCIUM 8.1 mg/dL (8.4-10.2); CARBON DIOXIDE 26 mmol/l (22-30); CHLORIDE 87 mmol/l (95-108); CREATININE 0.4 mg/dL (0.7-1.3); GFR > 60 ML/MIN (>=60 (CALC)); GFR FOR AFR.AMER. > 60 ML/MIN (>=60 (CALC)); GLUCOSE 80 mg/dL (82-115); MAGNESIUM 1.1 mg/dL (1.6-2.3); POTASSIUM 3.7 mmol/l (3.5-5.1); SODIUM 120 mmol/l (137-146)
--- NOTE | 2017-03-07 07:00 | NUR ---
REPORT RECEIVED FROM MO DELAROSA. PT SLEEPING AT THIS TIME. BED ALARM SET FOR SAFETY. CALL LIGHT WITHIN REACH.
--- NOTE | 2017-03-07 08:00 | NUR ---
PT SITTING UPRIGHT IN BED. DENIES PAIN. REPORTING OF CONCERNS ENCOURAGED. PT STATES " I JUST WANT TO EAT." FLUID RESTRICTION DISCUSSED. CALL LIGHT REVIEWED AND IN REACH. FALL RPECAUTIONS REINFORCED. PT STATES UNDERSTANDING.
[2017-03-07 08:20] LABS: HEMATOCRIT 24.5 % (39.0-50.0); HEMOGLOBIN 8.4 g/dl (14.0-18.0); MANUAL DIFFERENTIAL YES; MEAN CELL VOLUME 82.5 fL CALC (80.0-100.0); MEAN CORPUSCULAR HGB 28.3 pG CALC (26.0-32.0); MEAN CORPUSCULAR HGB CONC 34.3 g/L CALC (32.0-36.0); PLATELET COUNT 70 thou/uL (130-400); RED BLOOD COUNT 2.97 mill/uL (4.70-6.10); RED CELL DISTRI WIDTH 18.6 % (11.5-15.5)
[2017-03-07 08:21] LABS: BAND 4 % (0-8)
--- NOTE | 2017-03-07 10:10 | NUR ---
PTT ARRIVED TO ICU BED 8 VIA BED FROM MED SURG FOR HYPERTONIC SALINE INFUSION, PT ALERT AND ORIENTED, VS STABLE, TELE READING SR RATE IN THE 80-90'S, SKIN INTACT WITH REDDENED WARM AREA TO OLD EMS ACCESS IN LEFT WRIST, IMPLANTED PORT ACCESSED IN LEFT CHEST WALL WITH DRESSING INTACT, NO BLOOD ASPIRATE NOTED, MD AWARE, PT AFEBRILE, NO EDEMA, LLUNGS CLEAR DIMINSHED, ABD SOFT AND BS ACTIVE, UNABLE TO RECALL LAST BM, ALL MONITORING EQUIPMENT EXPLAINED PRIOR TO APPLICATION, ORIENTED TO ROOM AND UNIT, CALL FIGUEROA WITHIN REACH, WILL CONTINUE TO MONITOR.
--- NOTE | 2017-03-07 10:15 | NUR ---
PT TRANSFERED TO ICU 8. REPORT GIVEN TO HU WYNN. PT'S MOTHER UPDATED ON PLAN OF CARE BY DR. REMY.
--- NOTE | 2017-03-07 10:40 | NUR ---
3% SALINE STARTED ORDERED, WILL MONITOR ORDERED, PULSO OX 98% ON ROOM AIR, MOTHER AT BEDSIDE, REPOSITIONED FOR COMFORT, CALL FIGUEROA WITHIN REACH,
--- NOTE | 2017-03-07 11:56 | NUR ---
pt oob to bsc for BM, continent of XL soft sandoval/brown stool, assisted with neo care and handwashing, back to bed and repositioned for comfort, 3% saline continues as ordered, will continue to monitor
--- NOTE | 2017-03-07 13:12 | NUR ---
IMPLANTED PORT ACCESS REMOVED AND ATTEMPTED TO REACCESS PER PROTOCOL UNSUCCESSFULLY BY 2 RN'S, AWARE AND XRAY ORDERED FOR PORT EVALUATION,
--- NOTE | 2017-03-07 13:30 | NUR ---
20G V STARTED IN R FA FOR 3% SALINE, EXCELLENT ASPIRATE NOTED AND LAB SPECIMEN OBTAINED, MOTHER REMAINS AT BEDSIDE.
--- NOTE | 2017-03-07 14:00 | NUR ---
PT MOTHER CALLS STAFF PT IS "ALL TANGLED UP" PT FOUND WIHT SIRES WRAPPED SNUGGLY AROUND TORSO AND MILLER CATH PULLED SNUG, CORRECTED SITUATION AND WIRES REMOVED, STARIGHTENED AND REPLACE,D PT COMPLAINS OF SORENESS OT IV ACCESS, UNABLE TO OBTIANED ASPIRATE, 3% SALINE STOPPED, IV ACCESS REMOVED INTACT, NOTIFIED AND NEW ORDERS REC'D
[2017-03-07 14:03] LABS: ANION GAP 12 (6-22 (CALC)); BUN 10 mg/dL (8-23); BUN/CREATININE RATIO 20 (12-20 (CALC)); CARBON DIOXIDE 26 mmol/l (22-30); CHLORIDE 87 mmol/l (95-108); CREATININE 0.5 mg/dL (0.7-1.3); GFR > 60 ML/MIN (>=60 (CALC)); GFR FOR AFR.AMER. > 60 ML/MIN (>=60 (CALC)); GLUCOSE 114 mg/dL (82-115); POTASSIUM 3.5 mmol/l (3.5-5.1); SODIUM 122 mmol/l (137-146)
--- NOTE | 2017-03-07 14:23 | NUR ---
PT RESTING, MOM REMAINS AT BEDSIDE, CALL FIGUEROA WITHIN REACH, WILL CONTINUE TO MONITOR.
--- NOTE | 2017-03-07 15:30 | NUR ---
PT RESTING IN BED, REQUESTING SLEEPING PILL EDUCATED REGARDING NOT ADMINISTERING SLEEPING PILLS AT 3:30 IN TH AFTERNOON, PT VERBALIZES UNDERSTANDING, CALL FIGUEROA WITHIN REACH
--- NOTE | 2017-03-07 16:46 | NUR ---
PT REPEATEDLY RESTLESS IN BED REQUIRING FREQUENT EQUIPMENT ADJUSTMENT, TAKES PO MEDICATIONS WITHOUT INCIDENT, MOTHER GONE AT THIS TIME, INFUSION THERAPY NURSE AT BEDSIDE ATTEMPTING TO ACCESS IMPLANTED PORT W/O SUCCESS.
--- NOTE | 2017-03-07 17:25 | NUR ---
PT AGIAN REQUIRES READJUSTMENT WITH EQUIPMENT RELATED TO RESTLESSNESS IN BED, VS STABLE MILLER CATH INTACT WITH CATH STRAP SECURE, WILL CONTINUE TO MONITOR
--- NOTE | 2017-03-07 18:13 | NUR ---
SET UP ASSIST PROVIDED, MODERATE APPETITE, REPOSITIONED AGAIN FOR COMFORT, CALL FIGUEROA WITHIN REACH.
--- NOTE | 2017-03-07 19:10 | NUR ---
awakens easily. denies distress. funeral home associate shows sinus rhythm. #22 started rt hand x1 attempt. blood spec sent to lab. fluid restrictions cont. son cath in place. urine clear amita. fall & reverse isolation conts.
--- NOTE | 2017-03-07 21:00 | NUR ---
awakens easily. meds given. denies c/o
--- NOTE | 2017-03-07 22:00 | NUR ---
eyes closed. no distress. monitor shows sinus rhythm.
--- NOTE | 2017-03-08 00:01 | NUR ---
eyes closed. will not keep bp cuff on. no distress.
--- NOTE | 2017-03-08 02:00 | NUR ---
restintg quietly. resps even & unlabored. no apparent distress. monitor shows sinuws rhythm.
--- NOTE | 2017-03-08 04:30 | NUR ---
lab here. blood drawn.
[2017-03-08 05:00] LABS: HEMATOCRIT 26.6 % (39.0-50.0); MEAN CELL VOLUME 82.6 fL CALC (80.0-100.0); MEAN CORPUSCULAR HGB CONC 33.8 g/L CALC (32.0-36.0); RED BLOOD COUNT 3.22 mill/uL (4.70-6.10)
[2017-03-08 05:11] LABS: ANION GAP 12 (6-22 (CALC)); BUN 7 mg/dL (8-23); BUN/CREATININE RATIO 16 (12-20 (CALC)); CALCIUM 8.1 mg/dL (8.4-10.2); CARBON DIOXIDE 25 mmol/l (22-30); CHLORIDE 88 mmol/l (95-108); CREATININE 0.4 mg/dL (0.7-1.3); GFR > 60 ML/MIN (>=60 (CALC)); GFR FOR AFR.AMER. > 60 ML/MIN (>=60 (CALC)); GLUCOSE 87 mg/dL (82-115); POTASSIUM 3.4 mmol/l (3.5-5.1); SODIUM 121 mmol/l (137-146)
--- NOTE | 2017-03-08 05:54 | NUR ---
resting with eyes closed; afib on monitor; no distress noted; bed in lowest position; extremities floated; call light within reach
--- NOTE | 2017-03-08 06:00 | NUR ---
awakens easily. meds given. denies c/o.
--- NOTE | 2017-03-08 07:25 | NUR ---
PT RESTING IN BED, ALERT AND ORIENTED, OFFERS NO NEW COMPLAINTS, EXCEPT "I WANNA GO HOME" DISCHARGE PROCESS EXPLAINED AND PT VERBALIZEWS UNDERSTANDING, REVERSE ISOLATION FOLLOWED AND AM ASSESSMENT COMPLETED, SEE INTERVENTIONS, SKIN INTACT WITH NO BREAKDOWN NOTED, 22G INTACT IN R HAND, SET UP ASSIST PROVIDEDE FOR AM MEAL, SAFETY MEASURES REINFORCED FREQUENTLY, CALL FIGUEROA WITHIN REACH, WILL CONTINUE TO MONITOR.
--- NOTE | 2017-03-08 08:15 | NUR ---
IN TO SEE PATIENT, PLAN OF CARE DISCUSSED, PT AGAIN EXPRESSES DESIRE TO "GO HOME" EDUCATED REGARDING PLAN, TO SPEAK WITH PT'S MOTHER AND BROTHER, AND WILL EVALUTE FURTHER FROM THERE.
[2017-03-08 09:00] VITALS: BP 121/75
--- NOTE | 2017-03-08 09:00 | NUR ---
MOTHER AT BEDSIDE, TOELRATED AM MEAL WELL WITH 100% INTAKE, PLANNED RADIOLOGY TO EVAL PORT THIS AM. CALL FIGUEROA WITHIN REACH
--- NOTE | 2017-03-08 09:15 | NUR ---
PT MOTHER AT BEDSIDE, CALL FIGUEROA WITHIN REACH, IV VANCO INFUSING ORDERED, WILL CONTINUE TO MONITOR
--- NOTE | 2017-03-08 09:50 | NUR ---
PT TO RADIOLOGY FOR PORT EVAL, MOTHER AT BEDSIDE AND AWARE OF PLAN
--- NOTE | 2017-03-08 10:15 | NUR ---
PT BACK FROM RADIOLOGY, PORT ACCESSED AND PATENT, NO ASPIRATE NOTED PER JOSE CAMPOS IN RADIOLOGY. BUT PER FLUORO STUDY PORT IS PATENT WITH NO LEAKS AND PLACEMENT IS GOOD. BACK TO BED WITH STAND BY ASSIST, MOTHER AT BEDSIDE, LINENS CHANGED WHILE PT OFF UNIT, REPOSITIONED FOR COMFORT, CALL FIGUEROA WITHIN REACH, IV VANCO RESTARTED ORDERED, MAGNESIUM STARTED WELL, WILL MONITOR TOLERANCE
--- NOTE | 2017-03-08 11:30 | NUR ---
SET UP ASSIST PROVIDED FOR AFTERNOON MEAL, MOTHER AT BEDSIDE, TOLERATED MEAL WELL, DENIES N/V OR PAIN, SKIN INTACT DRESSING TO ACCESSED PORT IN LEFT CHEST WALL INTACT, CALL FIGUEROA WITHIN REACH.
--- NOTE | 2017-03-08 12:08 | NUR ---
PT RESTING, IN TO SEE PATIENT AND MOTHER, PLAN OF CARE DISCUSSED INCLUDING POTENTIAL D/C TOMORROW, ALL QUESTIONS ANSWERED. WILL CONTINUE TO MONITOR.
--- NOTE | 2017-03-08 13:10 | NUR ---
PT RESTING, REPOSITIONS SELF FOR COMFROT, MOTHER REMAINS AT BEDSIDE, CALL FIGUEROA WITHIN REACH, FLUID RESTRICTION MAINTAINED, TOLERATING IV MAGNEISOUM WITHOUT INCIDENT, WILL CONTINUE TO MONITOR.
[2017-03-08 14:00] VITALS: BP 109/71
--- NOTE | 2017-03-08 14:32 | NUR ---
IMPLANTED PORT FLUSGED PER PROTOCOL, NO ASPIRATE NOTED SEE PREVIOUS NOTES. CALL FIGUEROA WITHIN REACH
--- NOTE | 2017-03-08 14:51 | NUR ---
PT UP TO BSC, CALL FIGUEROA WITHIN REACH
--- NOTE | 2017-03-08 15:04 | NUR ---
PT CONTINENT OF XL FORMED STOOL, PT PROVIDED OWN ALEXIS CARE, BACK TO BED AND CALL FIGUEROA WITHIN REACH
--- NOTE | 2017-03-08 16:07 | NUR ---
PT DOZING, EASILY VISIBLE FROM NURSES STATION FOR SAFETY, CALL FIGUEROA WITHIN REACH.
--- NOTE | 2017-03-08 17:29 | NUR ---
SET UP ASSIST FOR PM MEAL, PT TAKES PO MEDICATIONS W/O INCIDENT, WILL CONTINUE TO MONITOR
[2017-03-08 18:00] VITALS: BP 118/72
--- NOTE | 2017-03-08 18:11 | NUR ---
PT RESTING IN BED, OFFERS NO NEW COMPLAINTS, CALL FIGUEROA WITHIN REACH, EASILY VISIBLE FROM NURSES STATION FOR SAFETY, WILL CONTINUE TO MONITOR
[2017-03-08 19:00] VITALS: BP 108/67
--- NOTE | 2017-03-08 19:12 | NUR ---
awake. denies c/o. groundwater monitoring technician shows sinus rhythm. lt chest port in place. remains on fluid restriction. son cath in place. urine yellow. bruise cont to rt forehead. fall precautions & reverse isolation cont.
--- NOTE | 2017-03-08 21:30 | NUR ---
request son to be removed. admits "my penis is sore." son removed per request.
[2017-03-08 23:30] VITALS: BP 129/78
--- NOTE | 2017-03-08 23:30 | NUR ---
awakens easily. denies c/o pain. alarm security or surveillance monitor shows sinus rhythm.
--- NOTE | 2017-03-09 02:00 | NUR ---
resting quietly. resps even & unlabored. no distress.
--- NOTE | 2017-03-09 04:45 | NUR ---
lab here. blood drawn.
[2017-03-09 05:04] LABS: HEMATOCRIT 27.2 % (39.0-50.0); HEMOGLOBIN 9.1 g/dl (14.0-18.0); MEAN CELL VOLUME 83.7 fL CALC (80.0-100.0); MEAN CORPUSCULAR HGB CONC 33.5 g/L CALC (32.0-36.0); PLATELET COUNT 148 thou/uL (130-400); RED BLOOD COUNT 3.25 mill/uL (4.70-6.10); RED CELL DISTRI WIDTH 19.3 % (11.5-15.5)
[2017-03-09 05:17] LABS: BUN 8 mg/dL (8-23); CALCIUM 8.3 mg/dL (8.4-10.2); CARBON DIOXIDE 26 mmol/l (22-30); CHLORIDE 89 mmol/l (95-108); CREATININE 0.5 mg/dL (0.7-1.3); GFR > 60 ML/MIN (>=60 (CALC)); GFR FOR AFR.AMER. > 60 ML/MIN (>=60 (CALC)); GLUCOSE 86 mg/dL (82-115); MAGNESIUM 1.3 mg/dL (1.6-2.3); POTASSIUM 3.4 mmol/l (3.5-5.1); SODIUM 124 mmol/l (137-146)
[2017-03-09 05:48] LABS: MANUAL DIFFERENTIAL YES
--- NOTE | 2017-03-09 06:15 | NUR ---
no acute change in condition this shift. cardiac cath technologist shows sinus rhythm. incont of urine. denies c/o.
--- NOTE | 2017-03-09 07:20 | NUR ---
PT RESTING IN BED, ALERT AND ORIENTED, OFFERS NO NEW COMPLAINTS, EXCEPT "I WANNA GO HOME" DISCHARGE PROCESS EXPLAINED AGAIN AND PT VERBALIZES UNDERSTANDING, REVERSE ISOLATION FOLLOWED AND AM ASSESSMENT COMPLETED, SEE INTERVENTIONS, SKIN INTACT WITH NO BREAKDOWN NOTED, IMPLANTED PORT ACCESS IN LEFT CHEST WALL INTACT, PT VOIDS USING URINAL W/O INCIDENT, SET UP ASSIST PROVIDED FOR AM MEAL, SAFETY MEASURES REINFORCED FREQUENTLY, CALL FIGUEROA WITHIN REACH, WILL CONTINUE TO MONITOR.
[2017-03-09 07:52] VITALS: BP 114/82
--- NOTE | 2017-03-09 07:53 | NUR ---
TOLERATED AM MEAL WELL WITH GOOD PO INTAKE, FLUID RESTRICTION OBSERVED, AND PT REMAINS ON REVERSE ISOLATION, CALL FIGUEROA WITHIN REACH, WILL CONTINUE TO MONITOR.
--- NOTE | 2017-03-09 08:35 | NUR ---
PT RESTING IN BED, CALLED AND REQUESTED WET CLOTH TO WASH FACE PROVIDED REQUESTED, URINAL WITHTIN REACH,INSTRUCTED TO CALL FOR ANY ASSISTANCE,
--- NOTE | 2017-03-09 09:08 | NUR ---
IN TO SEE PATIENT PLAN FO CARE DISCUSSED INCLUDING PLANNED DD/C TODAY, CALL FIGUEROA WITHIN REACH
[2017-03-09] MEDS ORDERED: SOD CHLORIDE1 GM PO (09:52)
[2017-03-09] MEDS ORDERED: ALBUTEROL SUL0.083 % IN (09:52)
[2017-03-09] MEDS ORDERED: MAG OXIDE400 MG PO (09:52)
[2017-03-09] MEDS ORDERED: KLOR-CON M2020 MEQ PO (09:52)
[2017-03-09] MEDS ORDERED: LASIX 20 MG20 MG/TAB PO (09:52)
--- NOTE | 2017-03-09 10:07 | NUR ---
ALL MONITORING EQUIPMENT REMOVED RELATED TO PLANNED D/C AND PT DESIRE TO GET DRESSED, AWAITING TRANSPORT ([facility] [place]...ETA [id number]) IMPLANTED PORT LEFT INTACT UNTIL TIME OF D/C, TO SPEAK WITH BRIOTHER PRIOR TO D/C.
[2017-03-09] MEDS ORDERED: DOXYCYCL HYC100 MG PO (11:15)
--- NOTE | 2017-03-09 11:23 | NUR ---
pt sittign up in recliner at bedside, offers no new complaints, mother remains at bedside, will continue to monitor.
--- NOTE | 2017-03-09 11:40 | NUR ---
set up assist provided for afternoon meal, callbell within reach
--- NOTE | 2017-03-09 12:35 | NUR ---
IMplanted port deaccessed after flushing per protocol, pt tolerated well.
--- NOTE | 2017-03-09 12:50 | NUR ---
in and spoke tiwhtpt brother regarding follow up care and D/C instructions per pt and mother request.
== END 2017-03-09 13:00 | disposition home or self-care (01) | DRG 640 ==
LOC: ED 11:36 → ED-I 14:18 → ED 14:37 → MS2 14:38 → ICU 14:38 → ED-I 14:38 → ICU 18:30 → MS2 03-05 11:26 → ICU 03-07 09:21
PROVIDERS: Emergency Medicine; Internal Medicine Nephrology; ADMIT Internal Medicine; ATTEND Internal Medicine
PROC: 0T9B70Z Drainage of Bladder with Drainage Device, Via Natural or Artificial Opening (ICD-10-PCS; principal; 2017-03-03)
DX: E87.1 Hypo-osmolality and hyponatremia (principal); D61.810 Antineoplastic chemotherapy induced pancytopenia; G93.49 Other encephalopathy; C34.90 Malignant neoplasm of unspecified part of unspecified bronchus or lung; F03.90 Unspecified dementia, unspecified severity, without behavioral disturbance, psychotic disturbance, mood disturbance, and anxiety; J44.9 Chronic obstructive pulmonary disease, unspecified; I10 Essential (primary) hypertension; D63.8 Anemia in other chronic diseases classified elsewhere; T81.72XA Complication of vein following a procedure, not elsewhere classified, initial encounter; I80.8 Phlebitis and thrombophlebitis of other sites; E83.42 Hypomagnesemia; F20.9 Schizophrenia, unspecified; F17.210 Nicotine dependence, cigarettes, uncomplicated; F50.89 Other specified eating disorder; T45.1X5A Adverse effect of antineoplastic and immunosuppressive drugs, initial encounter; S00.93XA Contusion of unspecified part of head, initial encounter; W19.XXXA Unspecified fall, initial encounter; Y84.8 Other medical procedures as the cause of abnormal reaction of the patient, or of later complication, without mention of misadventure at the time of the procedure; Z78.1 Physical restraint status
CPT/HCPCS: J2060; J3370; J3475